=== PATIENT | female | born 1975 | race Two or more races ===

== ENCOUNTER 2016-11-28 11:18 | Emergency (ER) | payer BC, OTHER ==
[~2016-11-28] VITALS: Ht 157.5 cm; Wt 54.9 kg
[2016-11-28 11:58] VITALS: BP 139/99
[2016-11-28] MEDS ORDERED: MECLIZINE HCL 12.5 MG TABLET. ONE (12:54)
[2016-11-28] MEDS ORDERED: MECL25TA3 PO (12:56)
--- NOTE | 2016-11-28 12:56 | PHYS DOC ---
Past Medical History Past Medical History: No Pertinent History Past Surgical History: No Surgical History Alcohol Use: Occasionally Drug Use: None Adult General Chief Complaint Chief Complaint: EARACHE/EAR PAIN HPI HPI Patient is a 41 year old female presents to the emergency Department with her who speaks Upper Sorbian only. Coal Cutting Machine Operator line was used to obtain information. states that she has been having ringing in bilateral ears on and off for the last year and a half. He states the last 3-4 days she's had increased ringing. He denies providing any medication for her to help with the ringing in the ears the last 3 or 4 days. She denies any dizziness, nausea or vomiting. Review of Systems Review of Systems Constitutional: Denies fever or chills [] Eyes: Denies change in visual acuity, redness, or eye pain [] HENT: Denies nasal congestion or sore throat. Complaint of ringing of the ears. Respiratory: Denies cough or shortness of breath [] Cardiovascular: No additional information not addressed in HPI [] GI: Denies abdominal pain, nausea, vomiting, bloody stools or diarrhea [] : Denies dysuria or hematuria [] Musculoskeletal: Denies back pain or joint pain [] Integument: Denies rash or skin lesions [] Neurologic: Denies headache, focal weakness or sensory changes [] Endocrine: Denies polyuria or polydipsia [] Current Medications Current Medications Current Medications Medications (Trade) Dose Ordered Sig/Shawanda Start Time Stop Time Status Last Admin Dose Admin Meclizine HCl (Antivert) 12.5 mg STK-MED ONCE 11/28/16 12:54 11/28/16 13:20 DC Allergies Allergies Allergies Coded Allergies Type Severity Reaction Last Updated Verified No Known Drug Allergies 08/30/14 No Physical Exam Physical Exam Constitutional: Well developed, well nourished, no acute distress, non-toxic appearance. [] HENT: Normocephalic, atraumatic, bilateral external ears normal, oropharynx moist, no oral exudates, nose normal. [] Eyes: PERRLA, EOMI, conjunctiva normal, no discharge. Bilateral tympanic membranes appear to be normal. Throat with no erythematous no exudate noted. No anterior cervical adenopathy noted. Neck: Normal range of motion, no tenderness, supple, no stridor. [] Cardiovascular:Heart rate regular rhythm, no murmur [] Lungs & Thorax: Bilateral breath sounds clear to auscultation [] Skin: Warm, dry, no erythema, no rash. [] Back: No tenderness Extremities: No tenderness, no cyanosis, no clubbing, ROM intact, no edema. [] Neurologic: Alert and oriented X 3, normal motor function, normal sensory function, no focal deficits noted. [] Psychologic: Affect normal, judgement normal, mood normal. [] Current Patient Data Vital Signs Vital Signs Date Time Temp Pulse Resp B/P (MAP) Pulse Ox O2 Delivery O2 Flow Rate FiO2 11/28/16 11:58 97.7 58 19 139/99 (112) 100 Room Air 97.7 EKG EKG [] Radiology/Procedures Radiology/Procedures [] Course & Med Decision Making Course & Med Decision Making Pertinent Labs and Imaging studies reviewed. (See chart for details) Spoke with through the vp digital marketing line we will use meclizine to help with the ringing of the ears. He is requesting a work note for her. Also recommended following up with primary care physician in the next 3-5 days. Signs and symptoms to return back to emergency department and been provided. Has been agrees with discharge instructions treatment regimens and follow-up recommendations. [] Dragon Disclaimer Dragon Disclaimer This electronic medical record was generated, in whole or in part, using a voice recognition dictation system. Departure Departure Impression: Primary Impression: Tinnitus, bilateral Disposition: HOME, SELF-CARE Condition: STABLE Referrals: YAHAIRA JO (PCP) Patient Instructions: Tinnitus Additional Instructions: Activity as tolerated. Medications as prescribed. Tylenol or ibuprofen for pain and discomfort. Follow-up with her primary care physician in the next 3-5 days. Return back to emergency department for signs and symptoms of become worse. Scripts Meclizine Hcl (MECLIZINE HCL) 25 Mg Tablet 1 TAB PO TID Y for SEE COMMENTS, #90 TAB Take as needed for ringing in the ears. Prov: JUSTIN VELAZQUEZ APRN 11/28/16 JUSTIN VELAZQUEZ APRN Nov 28, 2016 12:56
[2016-11-28] MEDS ORDERED: MECLIZINE HCL 12.5 MG TABLET. PO ONE (13:00)
== END 2016-11-28 13:00 | disposition home or self-care (01) ==
LOC: ER 11:18
DX: H93.13 Tinnitus, bilateral (principal)
CPT/HCPCS: 99283; J8597

== ENCOUNTER 2018-01-25 18:51 | Emergency (ER) | payer BC ==
[~2018-01-25] VITALS: Ht 160 cm; Wt 54.9 kg
[~2018-01-25 18:51] MED LIST: MECL25TA3 PO
[2018-01-25] MEDS ORDERED: fentaNYL PF VIAL 100 MCG/2 ML VIAL IV ONE (19:45)
[2018-01-25] MEDS ORDERED: ONDANSETRON PF 4 MG/2 ML VIAL. IV ONE (19:45)
[2018-01-25] MEDS ORDERED: IV NORMAL SALINE 1000ML BAG 1,000 ML IV ONE (19:45)
[2018-01-25 19:47] LABS: BILIRUBIN,URINE NEGATIVE (NEG); CLARITY,URINE CLOUDY; COLOR,URINE YELLOW; NITRITE,URINE NEGATIVE (NEG); PH,URINE 8.5; PROTEIN,URINE 30 mg/dL (NEG-TRACE); UROBILINOGEN,URINE 0.2 mg/dL (0.2 mg/dL)
[2018-01-25 19:52] LABS: BASO # 0.1 x10^3/uL (0.0-0.2); BASO % 1 % (0-3); EOS % 0 % (0-3); HEMATOCRIT 31.9 % (36.0-47.0); HEMOGLOBIN 10.8 g/dL (12.0-15.5); LYMPH # 1.1 x10^3/uL (1.0-4.8); LYMPH % 16 % (24-48); MEAN CORPUSCULAR HEMOGLOBIN 30 pg (25-35); MEAN CORPUSCULAR HGB CONC 34 g/dL (31-37); MEAN CORPUSCULAR VOLUME 88 fL (79-100); MONO # 0.9 x10^3/uL (0.0-1.1); MONO % 13 % (0-9); NEUT # 4.7 x10^3uL (1.8-7.7); NEUT % 69 % (31-73); PLATELET COUNT 195 x10^3/uL (140-400); RED BLOOD COUNT 3.61 x10^6/uL (3.50-5.40); RED CELL DISTRIBUTION WIDTH 13.6 % (11.5-14.5); WHITE BLOOD COUNT 6.7 x10^3/uL (4.0-11.0)
[2018-01-25 19:53] LABS: BACTERIA,URINE MODERATE /HPF (0-FEW); SQUAMOUS EPITHELIAL CELL,UR FEW /LPF; WBC,URINE 20-40 /HPF (0-4)
[2018-01-25 20:00] LABS: CALCIUM 8.7 mg/dL (8.5-10.1); CREATININE 0.8 mg/dL (0.6-1.0); POTASSIUM 3.8 mmol/L (3.5-5.1)
[2018-01-25 20:06] LABS: ALBUMIN/GLOBULIN RATIO 0.6 (1.0-1.7); TOTAL BILIRUBIN 0.7 mg/dL (0.2-1.0); TOTAL PROTEIN 7.8 g/dL (6.4-8.2)
--- NOTE | 2018-01-25 20:37 | RAD ---
PQRS Compliance statement: One or more of the following individualized dose reduction techniques were utilized for this examination: 1. Automated exposure control. 2. Adjustment of the mA and/or kV according to patient size. 3. Use of iterative reconstruction technique. Indication:left flank pain, hematuria, no priors TECHNIQUE: CT abdomen and pelvis without IV contrast with multiplanar reformats. COMPARISON: None FINDINGS: Limited exam due to lack of IV contrast. Heart is normal in size. 5 mm subpleural nodule in the right middle lobe. Noncontrast appearance of the liver, spleen, gallbladder, pancreas, adrenals within normal limits. No nephrolithiasis or hydronephrosis. No enlarged retroperitoneal or pelvic adenopathy. No bowel obstruction. Normal appendix. Multiple enlarged right lower quadrant soft tissue nodule seen likely approximately largest measuring 1.8 x 1.1 cm. Fat-containing lesion is seen in the left ovary measuring 3.0 x 1.6 cm. Anteverted uterus. Urinary bladder demonstrates no radiopaque stones. No suspicious bony lesion. IMPRESSION: 1. Limited evaluation of solid organs due to lack of IV contrast. 2. No nephrolithiasis or hydronephrosis. 3. Multiple enlarged lymph nodes in the right lower quadrant. Findings may secondary to mesenteric adenitis. 4. Left ovarian teratoma. 5. Right middle lobe nodule, specifically. Nonemergent CT chest recommended for evaluation of additional nodules. Electronically signed by: Woodrow Davis DO (01/25/2018 8:34 PM) [facility]
--- NOTE | 2018-01-25 20:52 | PHYS DOC ---
Past Medical History Past Medical History: No Pertinent History Past Surgical History: No Surgical History Additional Information: CHEWS TOBACCO Alcohol Use: Occasionally Drug Use: None Adult General Chief Complaint Chief Complaint: ABDOMINAL PAIN HPI HPI Translation phone used for communication as pt speaks primarily [place]. 42 y/o female presents to ER for c/o 5 day hx of rt side abd into rt flank area pain with dysuria. She reports she has had fever (unchecked at home) with intermittent nausea. She denies any V/D. She reports LMP 12/20/17 denies any vaginal sxs. Pt reports she had regular BM this morning. She reports she has had decreased appetite today with less fld intake. Review of Systems Review of Systems Constitutional: Denies fever or chills [] Eyes: Denies change in visual acuity, redness, or eye pain [] HENT: Denies nasal congestion or sore throat [] Respiratory: Denies cough or shortness of breath [] Cardiovascular: No additional information not addressed in HPI [] GI: Denies abdominal pain, nausea, vomiting, bloody stools or diarrhea [] : Denies dysuria or hematuria [] Musculoskeletal: Denies back pain or joint pain [] Integument: Denies rash or skin lesions [] Neurologic: Denies headache, focal weakness or sensory changes [] Endocrine: Denies polyuria or polydipsia [] All other systems were reviewed and found to be within normal limits, except as documented in this note. Current Medications Current Medications Current Medications Medications (Trade) Dose Ordered Sig/Shawanda Start Time Stop Time Status Last Admin Dose Admin Ceftriaxone Sodium 1 gm/ Dextrose 50 ml @ 100 mls/hr Q24H 01/25/18 20:00 Cancel Ceftriaxone Sodium (Rocephin) 1 gm Q24H 01/26/18 21:00 Fentanyl Citrate (Fentanyl 2ml Vial) 25 mcg 1X ONCE 01/25/18 19:45 01/25/18 19:46 DC 01/25/18 19:46 25 MCG Ketorolac Tromethamine (Toradol 15mg Vial) 15 mg 1X ONCE 01/25/18 21:30 01/25/18 21:31 Lactobacillus Rhamnosus (Culturelle) 1 cap BID 01/26/18 09:00 01/26/18 09:00 DC Ondansetron HCl (Zofran) 4 mg 1X ONCE 01/25/18 19:45 01/25/18 19:46 DC 01/25/18 19:45 4 MG Sodium Chloride 1,000 ml @ 1,000 mls/hr 1X ONCE 01/25/18 19:45 01/25/18 20:44 DC 01/25/18 19:45 1,000 MLS/HR Allergies Allergies Allergies Coded Allergies Type Severity Reaction Last Updated Verified No Known Drug Allergies 08/30/14 No Physical Exam Physical Exam Constitutional: Well developed, well nourished, no acute distress, non-toxic appearance. [] HENT: Normocephalic, atraumatic, bilateral external ears normal, oropharynx moist, no oral exudates, nose normal. [] Eyes: PERRLA, EOMI, conjunctiva normal, no discharge. [] Neck: Normal range of motion, no tenderness, supple, no stridor. [] Cardiovascular:Heart rate regular rhythm, no murmur [] Lungs & Thorax: Bilateral breath sounds clear to auscultation [] Abdomen: Bowel sounds normal, soft, no tenderness, no masses, no pulsatile masses. [] Skin: Warm, dry, no erythema, no rash. [] Back: No tenderness, no CVA tenderness. [] Extremities: No tenderness, no cyanosis, no clubbing, ROM intact, no edema. [] Neurologic: Alert and oriented X 3, normal motor function, normal sensory function, no focal deficits noted. [] Psychologic: Affect normal, judgement normal, mood normal. [] Current Patient Data Vital Signs Vital Signs Date Time Temp Pulse Resp B/P (MAP) Pulse Ox O2 Delivery O2 Flow Rate FiO2 01/25/18 19:46 18 98 Room Air 01/25/18 19:07 98.9 78 107/59 (75) 98.9 Lab Values Laboratory Tests Test 01/25/18 19:05 01/25/18 19:29 01/25/18 19:40 Urine Collection Type Unknown Urine Color Yellow Urine Clarity Cloudy Urine pH 8.5 Urine Specific Douglas 1.010 Urine Protein 30 mg/dL (NEG-TRACE) Urine Glucose (UA) Negative mg/dL (NEG) Urine Ketones (Stick) Negative mg/dL (NEG) Urine Blood Moderate (NEG) Urine Nitrite Negative (NEG) Urine Bilirubin Negative (NEG) Urine Urobilinogen Dipstick 0.2 mg/dL (0.2 mg/dL) Urine Leukocyte Esterase Large (NEG) Urine RBC 11-20 /HPF (0-2) Urine WBC 20-40 /HPF (0-4) Urine Squamous Epithelial Cells Few /LPF Urine Bacteria Moderate /HPF (0-FEW) POC Urine HCG, Qualitative Hcg negative (Negative) White Blood Count 6.7 x10^3/uL (4.0-11.0) Red Blood Count 3.61 x10^6/uL (3.50-5.40) Hemoglobin 10.8 g/dL (12.0-15.5) L Hematocrit 31.9 % (36.0-47.0) L Mean Corpuscular Volume 88 fL (79-100) Mean Corpuscular Hemoglobin 30 pg (25-35) Mean Corpuscular Hemoglobin Concent 34 g/dL (31-37) Red Cell Distribution Width 13.6 % (11.5-14.5) Platelet Count 195 x10^3/uL (140-400) Neutrophils (%) (Auto) 69 % (31-73) Lymphocytes (%) (Auto) 16 % (24-48) L Monocytes (%) (Auto) 13 % (0-9) H Eosinophils (%) (Auto) 0 % (0-3) Basophils (%) (Auto) 1 % (0-3) Neutrophils # (Auto) 4.7 x10^3uL (1.8-7.7) Lymphocytes # (Auto) 1.1 x10^3/uL (1.0-4.8) Monocytes # (Auto) 0.9 x10^3/uL (0.0-1.1) Eosinophils # (Auto) 0.0 x10^3/uL (0.0-0.7) Basophils # (Auto) 0.1 x10^3/uL (0.0-0.2) Sodium Level 137 mmol/L (136-145) Potassium Level 3.8 mmol/L (3.5-5.1) Chloride Level 102 mmol/L (98-107) Carbon Dioxide Level 28 mmol/L (21-32) Anion Gap 7 (6-14) Blood Urea Nitrogen 4 mg/dL (7-20) L Creatinine 0.8 mg/dL (0.6-1.0) Estimated GFR (Cockcroft-Gault) 79.0 BUN/Creatinine Ratio 5 (6-20) L Glucose Level 113 mg/dL (70-99) H Calcium Level 8.7 mg/dL (8.5-10.1) Total Bilirubin 0.7 mg/dL (0.2-1.0) Aspartate Amino Transferase (AST) 47 U/L (15-37) H Alanine Aminotransferase (ALT) 52 U/L (14-59) Alkaline Phosphatase 254 U/L (46-116) H Total Protein 7.8 g/dL (6.4-8.2) Albumin 3.0 g/dL (3.4-5.0) L Albumin/Globulin Ratio 0.6 (1.0-1.7) L Lipase 135 U/L (73-393) Laboratory Tests 01/25/18 19:40 Laboratory Tests 01/25/18 19:40 EKG EKG [] Radiology/Procedures Radiology/Procedures Indication:left flank pain, hematuria, no priors TECHNIQUE: CT abdomen and pelvis without IV contrast with multiplanar reformats. COMPARISON: None FINDINGS: Limited exam due to lack of IV contrast. Heart is normal in size. 5 mm subpleural nodule in the right middle lobe. Noncontrast appearance of the liver, spleen, gallbladder, pancreas, adrenals within normal limits. No nephrolithiasis or hydronephrosis. No enlarged retroperitoneal or pelvic adenopathy. No bowel obstruction. Normal appendix. Multiple enlarged right lower quadrant soft tissue nodule seen likely approximately largest measuring 1.8 x 1.1 cm. Fat-containing lesion is seen in the left ovary measuring 3.0 x 1.6 cm. Anteverted uterus. Urinary bladder demonstrates no radiopaque stones. No suspicious bony lesion. IMPRESSION: 1. Limited evaluation of solid organs due to lack of IV contrast. 2. No nephrolithiasis or hydronephrosis. 3. Multiple enlarged lymph nodes in the right lower quadrant. Findings may secondary to mesenteric adenitis. 4. Left ovarian teratoma. 5. Right middle lobe nodule, specifically. Nonemergent CT chest recommended for evaluation of additional nodules. Electronically signed by: Woodrow Davis DO (01/25/2018 8:34 PM) [facility] DICTATED and SIGNED BY: WOODROW DAVIS DO DATE: 01/25/182027 Course & Med Decision Making Course & Med Decision Making Pertinent Labs and Imaging studies reviewed. (See chart for details) 2107: With use of translation phone discussed lab/CT results with pt- UTI discussed. Pt was given dose of IV Rocephin while in ER and had IV flds/pain med. She reports she is feeling better- will provide dose of toradol prior to discharge. Discharge instructions were discussed with pt having improved sxs- she feels comfortable with home discharge at this time. Education provided on s& s to return to ER for. Pt will f/u with her PCP in next 3-5 days for re-eval or sooner if sxs worsen. Will provide pt with Rx for Keflex and pyridium. Pt advised on increasing water intake and use of OTC tylenol and/or ibuprofen for pain/fever control. Pt during this discussion is in no visible distress and nontoxic in appearance. Pt verbalized understanding on discussion and plan of care. UA results with mod blood/lg leuks neg. nitrates/ketones and micro had 11-20 RBCs and 20-40 WBCs- other labs unremarkable with WBCs NL. CT abd/pelvis results were discussed with Dr. Handley. Wily Disclaimer Wily Disclaimer This electronic medical record was generated, in whole or in part, using a voice recognition dictation system. Departure Departure Impression: Primary Impression: UTI (urinary tract infection) Additional Impression: Abdominal pain Disposition: 01 HOME, SELF-CARE Condition: STABLE Referrals: YAHAIRA JO (PCP) Patient Instructions: Abdominal Pain, Urinary Tract Infection Additional Instructions: Drink plenty of water. Tylenol and/or ibuprofen as directed on container for fever/pain control as needed. Follow-up with your primary doctor in 3-5 days for re-evaluation. Sooner if symptoms worsen or with any concerns. Scripts Phenazopyridine Hcl (PYRIDIUM) 100 Mg Tablet 100 MG PO TID for 5 Days, #15 TAB Prov: DAVID JAY APRN 01/25/18 Cephalexin (KEFLEX) 500 Mg Capsule 1 CAP PO BID, #14 CAP 0 Refills Prov: DAVID JAY APRN 01/25/18 Problem Qualifiers DAVID JAY APRN Jan 25, 2018 20:52
[2018-01-25] MEDS ORDERED: CEPH-264 PO (21:18)
[2018-01-25] MEDS ORDERED: PHEN100T82 PO (21:18)
[2018-01-25] MEDS ORDERED: KETOROLAC 15 MG/ML VIAL. IV ONE (21:30)
[2018-01-25 21:33] VITALS: BP 92/64
[2018-01-26] MEDS ORDERED: LACTOBACILLUS RHAMNOSUS GG 1 CAPSULE. PO SCH (09:00)
[2018-01-26] MEDS ORDERED: cefTRIAXone IV Push 1 GM VIAL. IVP SCH (21:00)
== END 2018-01-25 21:34 | disposition home or self-care (01) ==
LOC: ER 18:51
DX: N39.0 Urinary tract infection, site not specified (principal); R10.9 Unspecified abdominal pain; Z72.0 Tobacco use
CPT/HCPCS: 36415; 74176; 80053; 81001; 81025; 83690; 85025; 87086; 87186; 96365; 96375; 99285; J0690; J1885; J2405; J3010; J7030

== ENCOUNTER 2019-07-27 14:44 | Emergency (ER) | payer BC ==
[~2019-07-27] VITALS: Ht 129.5 cm; Wt 59.0 kg
[~2019-07-27 14:44] MED LIST changes: +CEPH-264 PO; +MECL-75 PO; -MECL25TA3 PO; +PHEN100T82 PO
[2019-07-27 15:15] LABS: BASO % 1 % (0-3); EOS # 0.1 x10^3/uL (0.0-0.7); EOS % 3 % (0-3); HEMOGLOBIN 13.3 g/dL (12.0-15.5); LYMPH # 0.8 x10^3/uL (1.0-4.8); LYMPH % 19 % (24-48); MEAN CORPUSCULAR HEMOGLOBIN 32 pg (25-35); MEAN CORPUSCULAR HGB CONC 34 g/dL (31-37); MEAN CORPUSCULAR VOLUME 94 fL (79-100); MONO # 0.5 x10^3/uL (0.0-1.1); MONO % 13 % (0-9); NEUT # 2.6 x10^3/uL (1.8-7.7); NEUT % 64 % (31-73); PLATELET COUNT 213 x10^3/uL (140-400); RED BLOOD COUNT 4.13 x10^6/uL (3.50-5.40); RED CELL DISTRIBUTION WIDTH 14.1 % (11.5-14.5); WHITE BLOOD COUNT 4.1 x10^3/uL (4.0-11.0)
[2019-07-27] MEDS ORDERED: IV NORMAL SALINE 1000ML BAG 1,000 ML IV ONE (15:15)
[2019-07-27] MEDS ORDERED: MECLIZINE HCL 12.5 MG TABLET. PO ONE (15:15)
[2019-07-27 15:22] LABS: CALCIUM 9.3 mg/dL (8.5-10.1); CREATININE 0.7 mg/dL (0.6-1.0); GFR 91.3; POTASSIUM 3.8 mmol/L (3.5-5.1)
--- NOTE | 2019-07-27 15:27 | RAD ---
PORTABLE CHEST 1V Clinical indications: Dizziness. COMPARISON: September 16, 2011.. Findings: No acute lung infiltrate or pleural effusion or pulmonary edema or lung mass or pneumothorax is seen. The heart size, pulmonary vasculature, mediastinum and both kimberly are stable. Impression: No acute radiographic abnormality is seen. Electronically signed by: Chuy Mello MD (07/27/2019 3:25 PM) [facility]
[2019-07-27 15:28] LABS: ALBUMIN 3.4 g/dL (3.4-5.0); ALBUMIN/GLOBULIN RATIO 0.7 (1.0-1.7); MAGNESIUM 2.2 mg/dL (1.8-2.4); TOTAL BILIRUBIN 0.4 mg/dL (0.2-1.0); TOTAL PROTEIN 8.1 g/dL (6.4-8.2)
[2019-07-27 15:40] LABS: CREATINE KINASE 46 U/L (26-192)
[2019-07-27 15:42] LABS: BILIRUBIN,URINE NEGATIVE (NEG); CLARITY,URINE CLEAR; COLOR,URINE YELLOW; NITRITE,URINE NEGATIVE (NEG); PH,URINE 7.5; PROTEIN,URINE NEGATIVE (NEG-TRACE); UROBILINOGEN,URINE 0.2 mg/dL (0.2 mg/dL)
[2019-07-27 15:47] LABS: BARBITURATES NEG (NEG); BENZODIAZEPINES NEG (NEG); CANNABINOIDS NEG (NEG); COCAINE NEG (NEG); METHADONE NEG (NEG); OPIATES NEG (NEG); PHENCYCLIDINE NEG (NEG)
[2019-07-27 15:48] LABS: AMPHETAMINE/METHAMPHETAMINE NEG (NEG)
[2019-07-27 15:50] LABS: BACTERIA,URINE 0 /HPF (0-FEW); RBC,URINE 0 /HPF (0-2); SQUAMOUS EPITHELIAL CELL,UR OCC /LPF; WBC,URINE 0 /HPF (0-4)
[2019-07-27 16:27] VITALS: BP 112/77
[2019-07-27 16:37] LABS: U PREG PATIENT NEGATIVE (NEG)
--- NOTE | 2019-07-27 16:46 | PHYS DOC ---
Past Medical History Past Medical History: No Pertinent History Past Surgical History: No Surgical History Smoking Status: Never Smoker Alcohol Use: Occasionally Drug Use: None Adult General Chief Complaint Chief Complaint: DIZZY/LIGHT HEADED HPI HPI Patient is a 44 year old female with history of chronic dizziness presenting to the ED today complaining of dizziness. Patient states today her symptoms are worse, she was at work and felt she could not be up and moving without feeling dizziness. Denies any nausea, vomiting, denies any fever coughing or congestion. Reports she is on medicine for dizziness but she doesn't know the name Review of Systems Review of Systems Constitutional: Denies fever or chills [] Eyes: Denies change in visual acuity, redness, or eye pain [] HENT: Denies nasal congestion or sore throat [] Respiratory: Denies cough or shortness of breath [] Cardiovascular: No additional information not addressed in HPI [] GI: Denies abdominal pain, nausea, vomiting, bloody stools or diarrhea [] : Denies dysuria or hematuria [] Musculoskeletal: Denies back pain or joint pain [] Integument: Denies rash or skin lesions [] Neurologic: Reports dizziness, denies, focal weakness or sensory changes [] All other systems were reviewed and found to be within normal limits, except as documented in this note. Current Medications Current Medications Current Medications Medications (Trade) Dose Ordered Sig/Shawanda Start Time Stop Time Status Last Admin Dose Admin Meclizine HCl (Antivert) 12.5 mg 1X ONCE 07/27/19 15:15 07/27/19 15:16 DC 07/27/19 15:10 12.5 MG Sodium Chloride 1,000 ml @ 1,000 mls/hr 1X ONCE 07/27/19 15:15 07/27/19 16:14 DC 07/27/19 15:10 1,000 MLS/HR Allergies Allergies Allergies Coded Allergies Type Severity Reaction Last Updated Verified No Known Drug Allergies 08/30/14 No Physical Exam Physical Exam Constitutional: Well developed, well nourished, no acute distress, non-toxic appearance. [] HENT: Normocephalic, atraumatic, bilateral external ears normal, oropharynx moist, no oral exudates, nose normal. [] Eyes: PERRLA, EOMI, conjunctiva normal, no discharge. [] Neck: Normal range of motion, no tenderness, supple, no stridor. [] Cardiovascular:Heart rate regular rhythm, no murmur [] Lungs & Thorax: Bilateral breath sounds clear to auscultation [] Abdomen: Bowel sounds normal, soft, no tenderness, no masses, no pulsatile masses. [] Skin: Warm, dry, no erythema, no rash. [] Back: No tenderness, no CVA tenderness. [] Extremities: No tenderness, no cyanosis, no clubbing, ROM intact, no edema. [] Neurologic: Alert and oriented X 3, normal motor function, normal sensory function, no focal deficits noted. Cranial nerves II-XII intact. Psychologic: Affect normal, judgement normal, mood normal. [] Current Patient Data Vital Signs Vital Signs Date Time Temp Pulse Resp B/P (MAP) Pulse Ox O2 Delivery O2 Flow Rate FiO2 07/27/19 16:27 69 16 99 07/27/19 14:58 98.6 143/81 (101) Room Air 98.6 Lab Values Laboratory Tests Test 07/27/19 15:00 07/27/19 15:25 White Blood Count 4.1 x10^3/uL (4.0-11.0) Red Blood Count 4.13 x10^6/uL (3.50-5.40) Hemoglobin 13.3 g/dL (12.0-15.5) Hematocrit 39.0 % (36.0-47.0) Mean Corpuscular Volume 94 fL (79-100) Mean Corpuscular Hemoglobin 32 pg (25-35) Mean Corpuscular Hemoglobin Concent 34 g/dL (31-37) Red Cell Distribution Width 14.1 % (11.5-14.5) Platelet Count 213 x10^3/uL (140-400) Neutrophils (%) (Auto) 64 % (31-73) Lymphocytes (%) (Auto) 19 % (24-48) L Monocytes (%) (Auto) 13 % (0-9) H Eosinophils (%) (Auto) 3 % (0-3) Basophils (%) (Auto) 1 % (0-3) Neutrophils # (Auto) 2.6 x10^3/uL (1.8-7.7) Lymphocytes # (Auto) 0.8 x10^3/uL (1.0-4.8) L Monocytes # (Auto) 0.5 x10^3/uL (0.0-1.1) Eosinophils # (Auto) 0.1 x10^3/uL (0.0-0.7) Basophils # (Auto) 0.0 x10^3/uL (0.0-0.2) Sodium Level 141 mmol/L (136-145) Potassium Level 3.8 mmol/L (3.5-5.1) Chloride Level 102 mmol/L (98-107) Carbon Dioxide Level 29 mmol/L (21-32) Anion Gap 10 (6-14) Blood Urea Nitrogen 6 mg/dL (7-20) L Creatinine 0.7 mg/dL (0.6-1.0) Estimated GFR (Cockcroft-Gault) 91.3 BUN/Creatinine Ratio 9 (6-20) Glucose Level 110 mg/dL (70-99) H Calcium Level 9.3 mg/dL (8.5-10.1) Magnesium Level 2.2 mg/dL (1.8-2.4) Total Bilirubin 0.4 mg/dL (0.2-1.0) Aspartate Amino Transferase (AST) 19 U/L (15-37) Alanine Aminotransferase (ALT) 22 U/L (14-59) Alkaline Phosphatase 130 U/L (46-116) H Creatine Kinase 46 U/L (26-192) Creatine Kinase MB (Mass) < 0.5 ng/mL (0.0-3.6) Creatine Kinase MB Relative Index % (0-4) Troponin I Quantitative < 0.017 ng/mL (0.000-0.055) WH-[id number]-Type Natriuretic Peptide 88 pg/mL (0-124) Total Protein 8.1 g/dL (6.4-8.2) Albumin 3.4 g/dL (3.4-5.0) Albumin/Globulin Ratio 0.7 (1.0-1.7) L Thyroid Stimulating Hormone (TSH) 0.730 uIU/mL (0.358-3.74) Urine Collection Type Unknown Urine Color Yellow Urine Clarity Clear Urine pH 7.5 Urine Specific [place] <=1.005 Urine Protein Negative mg/dL (NEG-TRACE) Urine Glucose (UA) Negative mg/dL (NEG) Urine Ketones (Stick) Negative mg/dL (NEG) Urine Blood Negative (NEG) Urine Nitrite Negative (NEG) Urine Bilirubin Negative (NEG) Urine Urobilinogen Dipstick 0.2 mg/dL (0.2 mg/dL) Urine Leukocyte Esterase Negative (NEG) Urine RBC 0 /HPF (0-2) Urine WBC 0 /HPF (0-4) Urine Squamous Epithelial Cells Occ /LPF Urine Bacteria 0 /HPF (0-FEW) Urine Mucus Slight /LPF Urine Test Negative (NEG) Urine Opiates Screen Neg (NEG) Urine Methadone Screen Neg (NEG) Urine Barbiturates Neg (NEG) Urine Phencyclidine Screen Neg (NEG) Urine Amphetamine/Methamphetamine Neg (NEG) Urine Benzodiazepines Screen Neg (NEG) Urine Cocaine Screen Neg (NEG) Urine Cannabinoids Screen Neg (NEG) Urine Ethyl Alcohol Neg (NEG) Laboratory Tests 07/27/19 15:00 Laboratory Tests 07/27/19 15:00 EKG EKG [address] Bishop Sinus rhythm, ST elevation on lead II only HR 70[] Radiology/Procedures Radiology/Procedures []PROCEDURE: PORTABLE CHEST 1V PORTABLE CHEST 1V Clinical indications: Dizziness. COMPARISON: September 16, 2011.. Findings: No acute lung infiltrate or pleural effusion or pulmonary edema or lung mass or pneumothorax is seen. The heart size, pulmonary vasculature, mediastinum and both kimberly are stable. Impression: No acute radiographic abnormality is seen. Electronically signed by: Sunny Mello MD (07/27/2019 3:25 PM) [facility] DICTATED and SIGNED BY: SUNNY MELLO MD DATE: 07/27/19 1525 PROCEDURE: CT HEAD WO CONTRAST CT HEAD WO CONTRAST Clinical indications: Dizziness. Comparison: None available. Technique: Noncontrast axial cross sectional scanning of the head was performed. PQRS compliance Statement One or more of the following individualized dose reduction techniques were utilized for this study: 1. Automated exposure control 2. Adjustment of the mA and/or kV according to patient size 3. Use of iterative reconstruction technique Findings: No acute intracranial hemorrhage or midline shift or mass-effect or hydrocephalus or extra-axial fluid collection is seen. No focal hypodense area or sulci effacement is seen to indicate an acute infarct or edema radiographically. No skull fracture or pneumocephalus is seen. No opacification of the mastoid sinuses or the middle ear cavities or the paranasal sinuses is seen. The maxillary sinuses are not completely seen in this study. Impression: No acute intracranial abnormality is seen. Electronically signed by: Sunny Mello MD (07/27/2019 4:49 PM) [facility] DICTATED and SIGNED BY: SUNNY MELLO MD DATE: 07/27/19 4189 Course & Med Decision Making Course & Med Decision Making Pertinent Labs and Imaging studies reviewed. (See chart for details) This is a 44-year-old female patient with history of chronic dizziness presenting to the ED today complaining of the same. Labs are negative. Chest x-ray is negative. Ct of the head is negative. EKG with no significant acute findings. Patient was positive for orthostatics BP supine 134/71, heart rate 67, sitting down 136/72 heart rate 76, standing up 114/84 heart rate 84 Patient was given 1 L of IV fluid, meclizine. Patient is feeling better. Discharged to home. Prescription for meclizine provided. Follow-up with PCP in 1-2 weeks Dragon Disclaimer Dragon Disclaimer This electronic medical record was generated, in whole or in part, using a voice recognition dictation system. Departure Departure Impression: Primary Impression: Vertigo Disposition: HOME, SELF-CARE Condition: STABLE Referrals: YAHAIRA JO (PCP) follow up on Monday Patient Instructions: Vertigo, [id number] Additional Instructions: You were collected in the emergency room for dizziness, we wrote you p rescription medicine for your symptoms take the medicines as ordered. Change positions slowly, push fluids. Follow-up with your doctor next week Scripts Meclizine Hcl (MECLIZINE HCL) 25 Mg Tablet 1 TAB PO TID, #30 TAB Prov: YASMEEN SANCHEZ APRN 07/27/19 YASMEEN SANCHEZ APRN Jul 27, 2019 16:46
--- NOTE | 2019-07-27 16:52 | RAD ---
CT HEAD WO CONTRAST Clinical indications: Dizziness. Comparison: None available. Technique: Noncontrast axial cross sectional scanning of the head was performed. PQRS compliance Statement One or more of the following individualized dose reduction techniques were utilized for this study: 1. Automated exposure control 2. Adjustment of the mA and/or kV according to patient size 3. Use of iterative reconstruction technique Findings: No acute intracranial hemorrhage or midline shift or mass-effect or hydrocephalus or extra-axial fluid collection is seen. No focal hypodense area or sulci effacement is seen to indicate an acute infarct or edema radiographically. No skull fracture or pneumocephalus is seen. No opacification of the mastoid sinuses or the middle ear cavities or the paranasal sinuses is seen. The maxillary sinuses are not completely seen in this study. Impression: No acute intracranial abnormality is seen. Electronically signed by: Chuy Mello MD (07/27/2019 4:49 PM) [facility]
[2019-07-27] MEDS ORDERED: MECL-75 PO (17:06)
--- NOTE | 2019-07-27 20:51 | EKG ---
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
== END 2019-07-27 17:10 | disposition home or self-care (01) ==
LOC: ER 14:44
DX: R42 Dizziness and giddiness (principal)
CPT/HCPCS: 36415; 70450; 71045; 80053; 80307; 81001; 81025; 82553; 83735; 83880; 84443; 84484; 85025; 93005; 96360; 99285; J7030; J8597

== ENCOUNTER 2020-01-31 15:36 | Emergency (ER) | payer SELFPAY ==
[~2020-01-31] VITALS: Ht 162.6 cm; Wt 79.0 kg
[2020-01-31] MEDS ORDERED: IV NORMAL SALINE 1000ML BAG 1,000 ML IV ONE (16:00)
[2020-01-31] MEDS ORDERED: ONDANSETRON PF 4 MG/2 ML VIAL. IVP ONE (16:00)
[2020-01-31 16:04] LABS: BASO % 1 % (0-3); EOS # 0.1 x10^3/uL (0.0-0.7); EOS % 3 % (0-3); HEMATOCRIT 34.2 % (36.0-47.0); HEMOGLOBIN 11.7 g/dL (12.0-15.5); LYMPH # 0.6 x10^3/uL (1.0-4.8); LYMPH % 14 % (24-48); MEAN CORPUSCULAR HEMOGLOBIN 33 pg (25-35); MEAN CORPUSCULAR HGB CONC 34 g/dL (31-37); MEAN CORPUSCULAR VOLUME 95 fL (79-100); MONO # 0.5 x10^3/uL (0.0-1.1); MONO % 10 % (0-9); NEUT # 3.2 x10^3/uL (1.8-7.7); NEUT % 71 % (31-73); PLATELET COUNT 198 x10^3/uL (140-400); RED BLOOD COUNT 3.59 x10^6/uL (3.50-5.40); RED CELL DISTRIBUTION WIDTH 12.9 % (11.5-14.5); WHITE BLOOD COUNT 4.5 x10^3/uL (4.0-11.0)
[2020-01-31 16:21] VITALS: BP 161/95
[2020-01-31 16:53] LABS: BILIRUBIN,URINE NEGATIVE (NEG); CLARITY,URINE CLEAR; COLOR,URINE YELLOW; NITRITE,URINE NEGATIVE (NEG); PH,URINE 7.5 (<5.0-8.0); PROTEIN,URINE NEGATIVE (NEG-TRACE); UROBILINOGEN,URINE 0.2 mg/dL (0.2 mg/dL)
[2020-01-31 16:58] LABS: BACTERIA,URINE FEW /HPF (0-FEW); RBC,URINE 0 /HPF (0-2); SQUAMOUS EPITHELIAL CELL,UR MOD /LPF
[2020-01-31 16:59] LABS: BARBITURATES NEG (NEG); BENZODIAZEPINES NEG (NEG); CANNABINOIDS NEG (NEG); COCAINE NEG (NEG); METHADONE NEG (NEG); OPIATES NEG (NEG); PHENCYCLIDINE NEG (NEG)
[2020-01-31 17:03] LABS: AMPHETAMINE/METHAMPHETAMINE NEG (NEG)
[2020-01-31 17:19] LABS: CALCIUM 8.6 mg/dL (8.5-10.1); CREATININE 0.7 mg/dL (0.6-1.0); GFR 91.3; POTASSIUM 4.3 mmol/L (3.5-5.1)
[2020-01-31 17:25] LABS: ALBUMIN 3.4 g/dL (3.4-5.0); ALBUMIN/GLOBULIN RATIO 0.8 (1.0-1.7); MAGNESIUM 1.7 mg/dL (1.8-2.4); TOTAL BILIRUBIN 0.6 mg/dL (0.2-1.0); TOTAL PROTEIN 7.5 g/dL (6.4-8.2)
[2020-01-31] MEDS ORDERED: CEPH500T PO (17:49)
--- NOTE | 2020-01-31 17:49 | PHYS DOC ---
Past Medical History Past Medical History: No Pertinent History Past Surgical History: No Surgical History Smoking Status: Never Smoker Alcohol Use: Occasionally Drug Use: None General Adult EDM: Chief Complaint: DIZZY/LIGHT HEADED HPI: HPI: Patient is a 44 year old female with history of chronic vertigo who presents to the ED today complaining of dizziness that began while she was at work. She reports trying to take her meclizine with no relief. She also took Effexor which she says was prescribed for her dizziness. Denies any nausea vomiting. She reports she had a slight headache but she feels better right now. Review of Systems: Review of Systems: Constitutional: Denies fever or chills. [] Eyes: Denies change in visual acuity. [] HENT: Denies nasal congestion or sore throat. [] Respiratory: Denies cough or shortness of breath. [] Cardiovascular: Denies chest pain or edema. [] GI: Denies abdominal pain, nausea, vomiting, bloody stools or diarrhea. [] : Denies dysuria. [] Musculoskeletal: Denies back pain or joint pain. [] Integument: Denies rash. [] Neurologic: Reports dizziness. Denies headache, focal weakness or sensory changes. [] Endocrine: Denies polyuria or polydipsia. [] Lymphatic: Denies swollen glands. [] Psychiatric: Denies depression or anxiety. [] Heart Score: Risk Factors: Risk Factors: DM, Current or recent (<one month) smoker, HTN, HLP, family history of CAD, obesity. Risk Scores: Score 0 - 3: 2.5% MACE over next 6 weeks - Discharge Home Score 4 - 6: 20.3% MACE over next 6 weeks - Admit for Clinical Observation Score 7 - 10: 72.7% MACE over next 6 weeks - Early Invasive Strategies Current Medications: Current Medications Medications (Trade) Dose Ordered Sig/Shawanda Start Time Stop Time Status Last Admin Dose Admin Ondansetron HCl (Zofran) 4 mg 1X ONCE 01/31/20 16:00 01/31/20 16:01 DC 01/31/20 16:00 4 MG Sodium Chloride 1,000 ml @ 1,000 mls/hr 1X ONCE 01/31/20 16:00 01/31/20 16:59 DC 01/31/20 16:00 1,000 MLS/HR Allergies: Allergies: Allergies Coded Allergies Type Severity Reaction Last Updated Verified No Known Drug Allergies 08/30/14 No Physical Exam: PE: Constitutional: Well developed, well nourished, no acute distress, non-toxic appearance. [] HENT: Normocephalic, atraumatic, bilateral external ears normal, oropharynx moist, no oral exudates, nose normal. [] Eyes: PERRLA, EOMI, conjunctiva normal, no discharge. [] Neck: Normal range of motion, no tenderness, supple, no stridor. [] Cardiovascular:Heart rate regular rhythm, no murmur [] Lungs & Thorax: Bilateral breath sounds clear to auscultation [] Abdomen: Bowel sounds normal, soft, no tenderness, no masses, no pulsatile masses. [] Skin: Warm, dry, no erythema, no rash. [] Back: No tenderness, no CVA tenderness. [] Extremities: No tenderness, no cyanosis, no clubbing, ROM intact, no edema. [] Neurologic: Alert and oriented X 3, normal motor function, normal sensory function, no focal deficits noted. Cranial nerves II through XII intact Psychologic: Affect normal, judgement normal, mood normal. [] Current Patient Data: Labs: Laboratory Tests Test 01/31/20 15:50 01/31/20 16:35 01/31/20 16:45 White Blood Count 4.5 x10^3/uL (4.0-11.0) Red Blood Count 3.59 x10^6/uL (3.50-5.40) Hemoglobin 11.7 g/dL (12.0-15.5) L Hematocrit 34.2 % (36.0-47.0) L Mean Corpuscular Volume 95 fL (79-100) Mean Corpuscular Hemoglobin 33 pg (25-35) Mean Corpuscular Hemoglobin Concent 34 g/dL (31-37) Red Cell Distribution Width 12.9 % (11.5-14.5) Platelet Count 198 x10^3/uL (140-400) Neutrophils (%) (Auto) 71 % (31-73) Lymphocytes (%) (Auto) 14 % (24-48) L Monocytes (%) (Auto) 10 % (0-9) H Eosinophils (%) (Auto) 3 % (0-3) Basophils (%) (Auto) 1 % (0-3) Neutrophils # (Auto) 3.2 x10^3/uL (1.8-7.7) Lymphocytes # (Auto) 0.6 x10^3/uL (1.0-4.8) L Monocytes # (Auto) 0.5 x10^3/uL (0.0-1.1) Eosinophils # (Auto) 0.1 x10^3/uL (0.0-0.7) Basophils # (Auto) 0.0 x10^3/uL (0.0-0.2) Urine Collection Type Unknown Urine Color Yellow Urine Clarity Clear Urine pH 7.5 (<5.0-8.0) Urine Specific [place] <=1.005 (1.000-1.030) Urine Protein Negative mg/dL (NEG-TRACE) Urine Glucose (UA) Negative mg/dL (NEG) Urine Ketones (Stick) Negative mg/dL (NEG) Urine Blood Negative (NEG) Urine Nitrite Negative (NEG) Urine Bilirubin Negative (NEG) Urine Urobilinogen Dipstick 0.2 mg/dL (0.2 mg/dL) Urine Leukocyte Esterase Moderate (NEG) Urine RBC 0 /HPF (0-2) Urine WBC 1-4 /HPF (0-4) Urine Squamous Epithelial Cells Mod /LPF Urine Bacteria Few /HPF (0-FEW) Urine Opiates Screen Neg (NEG) Urine Methadone Screen Neg (NEG) Urine Barbiturates Neg (NEG) Urine Phencyclidine Screen Neg (NEG) Urine Amphetamine/Methamphetamine Neg (NEG) Urine Benzodiazepines Screen Neg (NEG) Urine Cocaine Screen Neg (NEG) Urine Cannabinoids Screen Neg (NEG) Urine Ethyl Alcohol Neg (NEG) Sodium Level 137 mmol/L (136-145) Potassium Level 4.3 mmol/L (3.5-5.1) Chloride Level 103 mmol/L (98-107) Carbon Dioxide Level 25 mmol/L (21-32) Anion Gap 9 (6-14) Blood Urea Nitrogen 6 mg/dL (7-20) L Creatinine 0.7 mg/dL (0.6-1.0) Estimated GFR (Cockcroft-Gault) 91.3 BUN/Creatinine Ratio 9 (6-20) Glucose Level 118 mg/dL (70-99) H Calcium Level 8.6 mg/dL (8.5-10.1) Magnesium Level 1.7 mg/dL (1.8-2.4) L Total Bilirubin 0.6 mg/dL (0.2-1.0) Aspartate Amino Transferase (AST) 27 U/L (15-37) Alanine Aminotransferase (ALT) 32 U/L (14-59) Alkaline Phosphatase 133 U/L (46-116) H Total Protein 7.5 g/dL (6.4-8.2) Albumin 3.4 g/dL (3.4-5.0) Albumin/Globulin Ratio 0.8 (1.0-1.7) L Lipase 99 U/L (73-393) Ethyl Alcohol Level < 10 mg/dL (0-10) Laboratory Tests 01/31/20 15:50 Laboratory Tests 01/31/20 16:45 Vital Signs: Vital Signs Date Time Temp Pulse Resp B/P (MAP) Pulse Ox O2 Delivery O2 Flow Rate FiO2 01/31/20 16:21 98.6 55 16 161/95 (117) 100 Room Air 98.6 EKG: EKG: [] Radiology/Procedures: Radiology/Procedures: [] Course & Med Decision Making: Course & Med Decision Making Pertinent Labs and Imaging studies reviewed. (See chart for details) This is a 44-year-old female patient with history of vertigo presenting to the ED today complaining of dizziness. Labs are negative for any acute findings. Patient was given a liter of fluids. Feeling better. Noted for UTI. Given prescription for cephalexin. Discharge to home. Follow-up with PCP. Wily Disclaimer: Wily Disclaimer: This electronic medical record was generated, in whole or in part, using a voice recognition dictation system. Departure Departure Impression: Primary Impression: Vertigo Additional Impression: UTI (urinary tract infection) Qualified Codes: N39.0 - Urinary tract infection, site not specified Disposition: HOME, SELF-CARE Condition: STABLE Referrals: YAHAIRA JO (PCP) follow up in 1-2 weeks Patient Instructions: Urinary Tract Infection, Vertigo, [id number] Additional Instructions: You were evaluated in the emergency room for dizziness, you were also noted to have urinary tract infection. Take the prescribed antibiotics until completed. Continue taking your medications at home. Follow-up with your doctor in 1 to 2 weeks. Scripts Cephalexin (CEPHALEXIN) 500 Mg Tablet 1 TAB PO BID, #14 TAB Prov: MUTUNGA,YASMEEN HUC 01/31/20 Justicifation of Admission Dx: Justifications for Admission: Justification of Admission Dx: N/A YASMEEN SANCHEZ APRN Jan 31, 2020 17:49
--- NOTE | 2020-02-04 05:26 | EKG ---
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
== END 2020-01-31 18:17 | disposition home or self-care (01) ==
LOC: ER 15:36
DX: N39.0 Urinary tract infection, site not specified (principal); R42 Dizziness and giddiness; R51 Headache
CPT/HCPCS: 36415; 80053; 80307; 81001; 83690; 83735; 85025; 96361; 96374; 99283; G0480; J2405; J7030

== ENCOUNTER 2021-10-31 16:15 | Emergency (ER) | payer OTHER ==
[~2021-10-31] VITALS: Ht 157.5 cm; Wt 59.7 kg
[~2021-10-31 16:15] MED LIST changes: +CEPH500T PO
[2021-10-31 16:20] VITALS: BP 115/72
--- NOTE | 2021-10-31 16:38 | PHYS DOC ---
Past Medical History Past Medical History: No Pertinent History Additional Past Medical Histor: vertigo Past Surgical History: No Surgical History Smoking Status: Never Smoker Alcohol Use: Occasionally Drug Use: None General Adult EDM: Chief Complaint: ABDOMINAL PAIN HPI: HPI: History obtained from patient. uses fitness sales associate with patient and 's permission. Patient is a 46-year-old female with no reported PMH who presents with chief complaint of abdominal pain. She states it has been present every day for the past month. Notes eating food seems to trigger her symptoms. Denies previous abdominal surgical history. Denies dysuria or hematuria. Den ies constipation or diarrhea. Has been seen at [facility] for similar symptoms per . She does take medicine at home to help with her symptoms but he does not know the name of the medicine. States she had to miss work today due to the discomfort. Denies fevers. Denies vomiting. Denies chronic alcohol use. Denies any tobacco or recreational drug use. Review of Systems: Review of Systems: Constitutional: Denies fever or chills. [] Eyes: Denies change in visual acuity. [] HENT: Denies nasal congestion or sore throat. [] Respiratory: Denies cough or shortness of breath. [] Cardiovascular: Denies chest pain or edema. [] GI: Positive for abdominal pain : Denies dysuria. [] Musculoskeletal: Denies back pain or joint pain. [] Integument: Denies rash. [] Neurologic: Denies headache, focal weakness or sensory changes. [] Endocrine: Denies polyuria or polydipsia. [] Lymphatic: Denies swollen glands. [] Psychiatric: Denies depression or anxiety. [] Heart Score: C/O Chest Pain: No Risk Factors: Risk Factors: DM, Current or recent (<one month) smoker, HTN, HLP, family history of CAD, obesity. Risk Scores: Score 0 - 3: 2.5% MACE over next 6 weeks - Discharge Home Score 4 - 6: 20.3% MACE over next 6 weeks - Admit for Clinical Observation Score 7 - 10: 72.7% MACE over next 6 weeks - Early Invasive Strategies Allergies: Allergies: Allergies Coded Allergies Type Severity Reaction Last Updated Verified No Known Drug Allergies 08/30/14 No Physical Exam: PE: Constitutional: Well developed, well nourished, no acute distress, non-toxic appearance. [] HENT: Normocephalic, atraumatic, bilateral external ears normal, oropharynx moist, no oral exudates, nose normal. [] Eyes: PERRLA, EOMI, conjunctiva normal, no discharge. [] Neck: Normal range of motion, no tenderness, supple, no stridor. [] Cardiovascular:Heart rate regular rhythm, no murmur [] Lungs & Thorax: Bilateral breath sounds clear to auscultation [] Abdomen: Soft, nontender, nonacute abdomen. No involuntary guarding or rigidity noted. No acute peritonitis. Skin: Warm, dry, no erythema, no rash. [] Back: No tenderness, no CVA tenderness. [] Extremities: No tenderness, no cyanosis, no clubbing, ROM intact, no edema. [] Neurologic: Alert and oriented X 3, normal motor function, normal sensory function, no focal deficits noted. [] Psychologic: Affect normal, judgement normal, mood normal. [] Current Patient Data: Labs: Laboratory Tests Test 10/31/21 16:39 10/31/21 16:42 10/31/21 16:50 Urine Collection Type Unknown Urine Color (Auto) Colorless Urine Turbidity Hazy Urine pH (Auto) 6.0 Urine Specific Olga 1.004 Urine Protein (Auto) Negative mg/dL Urine Glucose (Auto)(UA) Negative mg/dL Urine Ketones (Auto) Negative mg/dL Urine Blood (Auto) Negative Urine Nitrite Negative Urine Bilirubin (Auto) Negative Urine Urobilinogen (Auto) Normal mg/dL Urine Leukocyte Esterase (Auto) Negative Urine RBC 0 /HPF Urine WBC Occ /HPF Urine Squamous Epithelial Cells Mod /LPF Urine Bacteria Few /HPF Urine Test Negative Bedside Urine HCG, Qualitative Hcg negative White Blood Count 4.2 x10^3/uL Red Blood Count 3.61 x10^6/uL Hemoglobin 10.2 g/dL Hematocrit 31.3 % Mean Corpuscular Volume 87 fL Mean Corpuscular Hemoglobin 28 pg Mean Corpuscular Hemoglobin Concent 33 g/dL Red Cell Distribution Width 14.7 % Platelet Count 215 x10^3/uL Neutrophils (%) (Auto) 65 % Lymphocytes (%) (Auto) 19 % Monocytes (%) (Auto) 13 % Eosinophils (%) (Auto) 3 % Basophils (%) (Auto) 1 % Neutrophils # (Auto) 2.7 x10^3/uL Lymphocytes # (Auto) 0.8 x10^3/uL Monocytes # (Auto) 0.6 x10^3/uL Eosinophils # (Auto) 0.1 x10^3/uL Basophils # (Auto) 0.0 x10^3/uL Sodium Level 141 mmol/L Potassium Level 3.3 mmol/L Chloride Level 106 mmol/L Carbon Dioxide Level 24 mmol/L Anion Gap 11 Blood Urea Nitrogen 5 mg/dL Creatinine 0.8 mg/dL Estimated GFR (Cockcroft-Gault) 77.6 BUN/Creatinine Ratio 6 Glucose Level 157 mg/dL Calcium Level 8.2 mg/dL Total Bilirubin 0.4 mg/dL Aspartate Amino Transf (AST/SGOT) 21 U/L Alanine Aminotransferase (ALT/SGPT) 18 U/L Alkaline Phosphatase 100 U/L Total Protein 6.6 g/dL Albumin 2.9 g/dL Albumin/Globulin Ratio 0.8 Lipase 175 U/L Current Medications Medications (Trade) Dose Ordered Sig/Shawanda Route PRN Reason Start Time Stop Time Status Last Admin Dose Admin Multi-Ingredient Mouthwash/Gargle (Gi Cocktail) 20 ml 1X ONCE SWSW 10/31/21 16:45 10/31/21 16:46 DC 10/31/21 17:00 Famotidine (Pepcid) 20 mg 1X ONCE PO 10/31/21 16:45 10/31/21 16:46 DC 10/31/21 17:00 EKG: EKG: [] Radiology/Procedures: Radiology/Procedures: [facility] [address] [place] [address] IMAGING REPORT Signed PATIENT: MAURA FANG ACCOUNT: [id number] : 1975 LOCATION: ER AGE: 46 SEX: F EXAM STATUS: REG ER ORD. PHYSICIAN: CLAYTON DENIS DO REASON: diffuse abd pain with eating PROCEDURE: CT ABDOMEN PELVIS WO CONTRAST CT ABDOMEN+PELVIS WO History: Diffuse abdominal pain with eating Comparison: CT abdomen and pelvis 01/25/2018. Technique: Noncontrast CT of the abdomen and pelvis. Findings: Dependent changes in the lung bases. Stable juxtapleural 5 mm nodule in the right middle lobe consistent with benign process, no follow-up required. The liver, gallbladder, pancreas, spleen, adrenal glands, and kidneys are unremarkable. The stomach is unremarkable. There is dilation and wall thickening of the terminal ileum with adjacent inflammatory changes. Inflammatory changes at the and wall thickening at the cecum. The appendix measures at the upper limits of normal, 7 mm with adjacent inflammatory changes which appear to be coming from the adjacent cecum. Ascending, transverse and descending colon are unremarkable. There is a fat-containing left adnexal mass measuring 2.9 x 2.4 x 4.5 cm consistent with mature cystic teratoma. The uterus and bladder are unremarkable. There is trace pelvic free fluid. No intra-abdominal free air. The unenhanced vasculature is unremarkable. Shotty lymph nodes are present in the right lower quadrant. Soft tissues are unremarkable. No acute osseous abnormality. Impression: 1. Wall thickening and inflammatory changes of the terminal ileum and cecum. This may be due to inflammatory infectious etiology such as inflammatory bowel disease. Recommend GI consultation. The appendix is also at the upper limits of normal and demonstrates periappendiceal fat stranding however this is favored to be secondary to a process originating at the terminal ileum and cecum. 2. 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 ------ Exposure: One or more of the following individualized dose reduction techniques were utilized for this examination: 1. Automated exposure control 2. Adjustment of the mA and/or kV according to patient size 3. Use of iterative reconstruction technique. Electronically signed by: James Lawton MD (10/31/2021 5:49 PM) [id number] DICTATED and SIGNED BY: JAMES LAWTON MD DATE: 10/31/211737 [] Course & Med Decision Making: Course & Med Decision Making Pertinent Labs and Imaging studies reviewed. (See chart for details) [] Patient is a 46-year-old female presents with a chief complaint of diffuse abdominal pain. States he has had similar issues over the past month but the pain today seems to be worse than usual. Initial vital signs unremarkable. Afebrile nontachycardic. Laboratory analysis largely unremarkable. No leukocytosis present. CT imaging reveals nonspecific fat stranding in the right lower quadrant near the cecum and adjacent to the appendix. Mildly thickened appendix noted. No appendicolith visualized. Inflammatory changes could certainly be related to bowel inflammation. However somewhat th however the appendix is somewhat thickened. I did discuss case with general surgeon Dr. Sol. We will feel is reasonable to hospitalize the patient for observation and serial abdominal exams overnight. I did discuss results of labs and imaging extensively with patient and at bedside. I did discuss my conversation with general surgery as well as her recommendations for observation overnight. Unfortunately patient states that she cannot be admitted. She states this is due to childcare issues at home. I did explain that the patient may have a developing surgical emergency that has not been identified yet. I explained that delay in identification and possible care could result in life-threatening illness. Patient and both expressed an understanding of her basic health care needs as well as potential consequences of going home. At this time patient is electing leave AGAINST MEDICAL ADVICE. She does appear to be alert and oriented x3. Have a basic understanding of her health care as well as pote ntial consequences. Strict 12-24 return precautions were discussed and understood. Wily Disclaimer: Wily Disclaimer: This electronic medical record was generated, in whole or in part, using a voice recognition dictation system. Departure Departure Impression: Primary Impression: Abdominal pain Qualified Codes: R10.84 - Generalized abdominal pain Disposition: LEFT AGAINST MEDICAL ADVICE Condition: GOOD Referrals: YAHAIRA JO (PCP) Patient Instructions: Gastroesophageal Reflux Disease, Adult Additional Instructions: Please return to the emergency department in 24 to 48 hours if your symptoms do not improve or worsen Scripts Ondansetron (ONDANSETRON ODT) 4 Mg Tab.rapdis 1 TAB PO PRN Q6-8HRS, #9 TAB Prov: CLAYTON DENIS DO 10/31/21 Famotidine (PEPCID) 20 Mg Tablet 20 MG PO BID for 7 Days, #14 TAB Prov: CLAYTON DENIS DO 10/31/21 CLAYTON DENIS DO October 31, 2021 16:38
[2021-10-31] MEDS ORDERED: FAMOTIDINE 20 MG TABLET. PO ONE (16:45)
[2021-10-31] MEDS ORDERED: LIDO:MAALOX 1:1 20 ML SINGLE DOSE. SWSW ONE (16:45)
[2021-10-31 16:49] LABS: U PREG PATIENT NEGATIVE (NEG)
[2021-10-31 17:01] LABS: BASO % 1 % (0-3); EOS # 0.1 x10^3/uL (0.0-0.7); EOS % 3 % (0-3); HEMATOCRIT 31.3 % (36.0-47.0); HEMOGLOBIN 10.2 g/dL (12.0-15.5); LYMPH # 0.8 x10^3/uL (1.0-4.8); LYMPH % 19 % (24-48); MEAN CORPUSCULAR HEMOGLOBIN 28 pg (25-35); MEAN CORPUSCULAR HGB CONC 33 g/dL (31-37); MEAN CORPUSCULAR VOLUME 87 fL (79-100); MONO # 0.6 x10^3/uL (0.0-1.1); MONO % 13 % (0-9); NEUT # 2.7 x10^3/uL (1.8-7.7); NEUT % 65 % (31-73); PLATELET COUNT 215 x10^3/uL (140-400); RED BLOOD COUNT 3.61 x10^6/uL (3.50-5.40); RED CELL DISTRIBUTION WIDTH 14.7 % (11.5-14.5); WHITE BLOOD COUNT 4.2 x10^3/uL (4.0-11.0)
[2021-10-31 17:11] LABS: CALCIUM 8.2 mg/dL (8.5-10.1); CREATININE 0.8 mg/dL (0.6-1.0); GFR 77.6; POTASSIUM 3.3 mmol/L (3.5-5.1)
[2021-10-31 17:12] LABS: BACTERIA,URINE FEW /HPF (0-FEW)
[2021-10-31 17:13] LABS: RBC,URINE 0 /HPF (0-2); WBC,URINE OCC /HPF (0-4)
[2021-10-31 17:16] LABS: ALBUMIN 2.9 g/dL (3.4-5.0); ALBUMIN/GLOBULIN RATIO 0.8 (1.0-1.7); TOTAL BILIRUBIN 0.4 mg/dL (0.2-1.0); TOTAL PROTEIN 6.6 g/dL (6.4-8.2)
[2021-10-31] MEDS ORDERED: ONDA4TAB12 PO (17:33)
[2021-10-31] MEDS ORDERED: FAMO-63 PO (17:33)
--- NOTE | 2021-10-31 17:51 | RAD ---
CT ABDOMEN+PELVIS WO History: Diffuse abdominal pain with eating Comparison: CT abdomen and pelvis 01/25/2018. Technique: Noncontrast CT of the abdomen and pelvis. Findings: Dependent changes in the lung bases. Stable juxtapleural 5 mm nodule in the right middle lobe consist ent with benign process, no follow-up required. The liver, gallbladder, pancreas, spleen, adrenal gla nds, and kidneys are unremarkable. The stomach is unremarkable. There is dilation and wall thickening of the terminal ileum with adjacen t inflammatory changes. Inflammatory changes at the and wall thickening at the cecum. The appendix me asures at the upper limits of normal, 7 mm with adjacent inflammatory changes which appear to be comi ng from the adjacent cecum. Ascending, transverse and descending colon are unremarkable. There is a fat-containing left adnexal mass measuring 2.9 x 2.4 x 4.5 cm consistent with mature cyst ic teratoma. The uterus and bladder are unremarkable. There is trace pelvic free fluid. No intra-abdo nicolasa free air. The unenhanced vasculature is unremarkable. Shotty lymph nodes are present in the rig ht lower quadrant. Soft tissues are unremarkable. No acute osseous abnormality. Impression: 1. Wall thickening and inflammatory changes of the terminal ileum and cecum. This may be due to infl ammatory infectious etiology such as inflammatory bowel disease. Recommend GI consultation. The appen valentine is also at the upper limits of normal and demonstrates periappendiceal fat stranding however this is favored to be secondary to a process originating at the terminal ileum and cecum. 2. 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 ------ Exposure: One or more of the following individualized dose reduction techniques were utilized for thi s examination: 1. Automated exposure control 2. Adjustment of the mA and/or kV according to patient size 3. Use of iterative reconstruction technique. Electronically signed by: James Knox MD (10/31/2021 5:49 PM) [id number]
== END 2021-10-31 19:05 | disposition left against medical advice (07) ==
LOC: ER 16:15
DX: R10.84 Generalized abdominal pain (principal)
CPT/HCPCS: 36415; 74176; 80053; 81001; 81025; 83690; 85025; 99284